=== PATIENT | female | born 1990 | race Caucasian/White ===

== ENCOUNTER 2021-10-19 06:02 | Inpatient (IN) ==
[2021-10-19] MEDS ORDERED: ceFOXitin 2 GM PREMIX 50 ML IVPB ONE (06:30)
[2021-10-19] MEDS ORDERED: Sodium Citrate/Citric Acid LIQ 15 ML UDC ONE ×2 (06:58)
[2021-10-19] MEDS ORDERED: Ondansetron 4 mg VIAL 2 MG/ML 2 ml VIAL IV PRN (07:07)
[2021-10-19] MEDS ORDERED: Naloxone 4 mg VIAL (10 ml) 2 MG in NS 0.9% 250 ml 250 ML IV PRN (07:07)
[2021-10-19] MEDS ORDERED: Metoclopramide 5 MG/ML VIAL (10 mg) IV PRN (07:07)
[2021-10-19] MEDS ORDERED: diPHENhydraMINE IV 50 MG/ML 1 ml VIAL (BENADRYL) IV PRN (07:07)
[2021-10-19] MEDS ORDERED: DiMENhydriNATE IV 50 mg/ml 1 ml VIAL IV PUSH PRN (07:07)
[2021-10-19] MEDS ORDERED: Naloxone 0.4 mg VIAL 0.4 mg/ml 1 ml VIAL IV PRN (07:07)
[2021-10-19] MEDS ORDERED: Sodium Citrate/Citric Acid LIQ 15 ML UDC PO ONE (07:09)
[2021-10-19] MEDS ORDERED: Morphine PF AMP (0.5MG/ML) 5 MG/10 ML AMP ONE (07:22)
[2021-10-19] MEDS ORDERED: Oxytocin 10 UNITS/ML 1 ML VIAL ONE (08:32)
[2021-10-19] MEDS ORDERED: Dexamethasone IV 4 MG/ML VIAL 1 ml VIAL ONE (08:33)
[2021-10-19] MEDS ORDERED: Ondansetron 4 mg VIAL 2 MG/ML 2 ml VIAL ONE (08:33)
[2021-10-19] MEDS ORDERED: Glycerin ADULT 2.4 gm SUPP PR PRN (09:32)
[2021-10-19] MEDS ORDERED: Witch Hazel PAD JAR TOPICAL PRN (09:32)
[2021-10-19] MEDS ORDERED: Dibucaine 1% OINT 28.35 GM TUBE PR PRN (09:32)
[2021-10-19] MEDS ORDERED: Lactated Ringers 1000 ml BAG 1,000 ML IV SCH (10:00)
[2021-10-19] MEDS ORDERED: Oxytocin in LR 20 UNITS/1,000 ML BAG IVPB ONE (10:01)
[2021-10-19] MEDS: Oxytocin in LR 20 UNITS/1,000 ML BAG IVPB SCH ×2 (10:41→18:04)
[2021-10-19 10:47] LABS: Urine Appearance Clear; Urine Bilirubin Negative (Negative); Urine Blood Negative (Negative); Urine Color Colorless; Urine Glucose Negative (Negative); Urine Ketones Negative (Negative); Urine Nitrite Negative (Negative); Urine Protein Negative (Negative); Urine Specific Gravity 1.002 (1.002-1.030); Urine Urobilinogen Negative (Negative)
[2021-10-19 11:07] LABS: Urine Benzodiazepine Screen None Detected (None Detect); Urine Opiates Screen None Detected (None Detect)
[2021-10-20 01:44] LABS: ABS Eosinophils 0.1 10^3/ul (0-0.6); ABS Monocytes 1.5 10^3/ul (0-0.8); ABS Neutrophils 13.6 10^3/ul (1.5-7.7); Eosinophil % 0.6 %; Hematocrit 29 % (35-47); Lymphocyte % 11.6 %; Mean Corpuscular HGB Conc 35 g/dL (31-36); Mean Corpuscular Hemoglobin 33 pg (27-31); Mean Corpuscular Volume 96 fL (80-97); Mean Platelet Volume 10.5 fL (7.4-10.4); Platelet Count 128 10^3/uL (150-450); Red Blood Count 3.04 10^6 /uL (3.70-4.87); Red Cell Distribution Width 13 % (10-15); White Blood Count 17.2 10^3/uL (3.5-10.8)
[2021-10-20] MEDS ORDERED: Oxytocin in LR 20 UNITS/1,000 ML BAG IVPB ONE ×2 (02:36→10:46)
[2021-10-20 06:49] LABS: ABS Eosinophils 0.1 10^3/ul (0-0.6); ABS Lymphocytes 1.4 10^3/ul (1.0-4.8); ABS Neutrophils 10.6 10^3/ul (1.5-7.7); Eosinophil % 0.6 %; Hematocrit 24 % (35-47); Hemoglobin 8.2 g/dL (12.0-16.0); Lymphocyte % 10.7 %; Mean Corpuscular HGB Conc 35 g/dL (31-36); Mean Corpuscular Hemoglobin 33 pg (27-31); Mean Corpuscular Volume 96 fL (80-97); Mean Platelet Volume 10.1 fL (7.4-10.4); Platelet Count 100 10^3/uL (150-450); Red Blood Count 2.48 10^6 /uL (3.70-4.87); Red Cell Distribution Width 13 % (10-15); White Blood Count 13.1 10^3/uL (3.5-10.8)
[2021-10-21 06:52] LABS: ABS Eosinophils 0.1 10^3/ul (0-0.6); ABS Lymphocytes 1.2 10^3/ul (1.0-4.8); ABS Monocytes 0.8 10^3/ul (0-0.8); Eosinophil % 1.2 %; Hematocrit 22 % (35-47); Hemoglobin 7.7 g/dL (12.0-16.0); Lymphocyte % 13.5 %; Mean Corpuscular HGB Conc 36 g/dL (31-36); Mean Corpuscular Hemoglobin 34 pg (27-31); Mean Corpuscular Volume 95 fL (80-97); Mean Platelet Volume 9.3 fL (7.4-10.4); Platelet Count 125 10^3/uL (150-450); Red Blood Count 2.29 10^6 /uL (3.70-4.87); Red Cell Distribution Width 13 % (10-15); White Blood Count 9.1 10^3/uL (3.5-10.8)
[2021-10-21 20:14] VITALS: BP 110/64
== END 2021-10-22 12:25 | disposition home or self-care (01) | DRG 540 ==
LOC: MCHOB 06:02
PROVIDERS: ADMIT Obstetrics & Gynecology; ATTEND Obstetrics & Gynecology

== ENCOUNTER 2024-05-13 07:00 | Inpatient (IN) ==
[2024-07-02 06:35] LABS: ABS Eosinophils 0.1 10^3/uL (0.0-0.5); ABS Lymphocytes 2.3 10^3/uL (1.0-4.8); ABS Monocytes 0.9 10^3/uL (0.0-0.9); ABS Neutrophils 7.4 10^3/uL (1.5-7.6); Eosinophil % 1.2 %; Hematocrit 33.7 % (35-45); Lymphocyte % 21.5 %; Mean Corpuscular Hemoglobin 33.5 pg (27-33); Mean Corpuscular Hgb Conc 35.6 g/dL (31-36); Mean Corpuscular Volume 94.3 fL (80-97); Mean Platelet Volume 8.7 fL (7.5-11.2); Platelet Count 166 10^3/uL (150-450); Red Blood Count 3.58 10^6/uL (3.63-4.92); Red Cell Distribution Width 13.1 % (12-17); White Blood Count 10.8 10^3/uL (3.8-11.8)
[2024-07-02] MEDS ORDERED: Ondansetron 4 mg VIAL 2 MG/ML 2 ml VIAL ONE (06:36)
[2024-07-02] MEDS ORDERED: Dexamethasone IV 4 MG/ML VIAL 1 ml VIAL ONE (06:36)
[2024-07-02] MEDS ORDERED: Acetaminophen IV 1 GM/100ML 1,000 MG/100 ML BAG IV ONE (06:36)
[2024-07-02] MEDS ORDERED: Morphine PF AMP (0.5MG/ML) 5 MG/10 ML AMP ONE (06:36)
[2024-07-02] MEDS ORDERED: Oxytocin 10 UNITS/ML 1 ML VIAL ONE ×2 (06:37)
[2024-07-02] MEDS: Sodium Citrate/Citric Acid LIQ 15 ML UDC PO ONE (07:24)
[2024-07-02] MEDS: ceFOXitin 2 GM IVPREMIX 2 GM/50 ML BAG IVPB ONE (07:24)
[2024-07-02] MEDS ORDERED: Acetaminophen IV 1 GM/100ML 1,000 MG/100 ML BAG IV PRN (08:43)
[2024-07-02] MEDS ORDERED: Naloxone 0.4 mg VIAL 0.4 mg/ml 1 ml VIAL IV PUSH PRN (08:43)
[2024-07-02] MEDS ORDERED: Metoclopramide 5 MG/ML VIAL (10 mg) IV PRN (08:43)
[2024-07-02] MEDS ORDERED: Ondansetron 4 mg VIAL 2 MG/ML 2 ml VIAL IV PRN (08:43)
[2024-07-02] MEDS ORDERED: Glycerin ADULT 2.4 gm SUPP PR PRN (09:24)
[2024-07-02] MEDS ORDERED: Dibucaine 1% OINT 28.35 GM TUBE PR PRN (09:24)
[2024-07-02] MEDS ORDERED: Witch Hazel PAD JAR TOPICAL PRN (09:24)
[2024-07-02] MEDS ORDERED: Lactated Ringers 1000 ml BAG 1,000 ML IV SCH (10:00)
[2024-07-02 10:20] LABS: Urine Appearance Clear; Urine Bilirubin Negative (Negative); Urine Blood Negative (Negative); Urine Color Light-Yellow; Urine Glucose Negative (Negative); Urine Ketones Negative (Negative); Urine Nitrite Negative (Negative); Urine Protein Negative (Negative); Urine Specific Gravity 1.007 (1.002-1.030); Urine Urobilinogen Negative (Negative); Urine pH 7.5 (5.0-8.0)
[2024-07-02 12:50] LABS: Urine Benzodiazepine Screen None Detected (None Detect); Urine Cannabinoids Screen None Detected (None Detect); Urine Opiates Screen None Detected (None Detect)
[2024-07-02] MEDS: Oxytocin in LR 20,000 MILLI.UNIT/1,000 ML BAG IV SCH (14:45)
[2024-07-02] MEDS: Lactated Ringers 1000 ml BAG 1,000 ML IV SCH (23:33)
[2024-07-02] MEDS: Lactated Ringers 1000 ml BAG 1,000 ML IV ONE (23:33)
[2024-07-02] MEDS: Buffered Lidocaine 1% SYRIN 1 ml INTRADERM ONE (23:33)
[2024-07-03 06:44] LABS: ABS Eosinophils 0.2 10^3/uL (0.0-0.5); ABS Lymphocytes 2.7 10^3/uL (1.0-4.8); Hematocrit 33.9 % (35-45); Hemoglobin 11.9 g/dL (11.5-14.3); Lymphocyte % 18.3 %; Mean Corpuscular Hemoglobin 33.3 pg (27-33); Mean Corpuscular Hgb Conc 35.2 g/dL (31-36); Mean Corpuscular Volume 94.5 fL (80-97); Mean Platelet Volume 8.7 fL (7.5-11.2); Platelet Count 171 10^3/uL (150-450); Red Blood Count 3.59 10^6/uL (3.63-4.92)
[2024-07-04 08:56] VITALS: BP 111/74
== END 2024-07-04 16:00 | disposition home or self-care (01) | DRG 540 ==
LOC: MCHOB 07-02 05:31
PROVIDERS: ADMIT Obstetrics & Gynecology; ATTEND Obstetrics & Gynecology